=== PATIENT | female | born 1980 | race Caucasian/White ===

== ENCOUNTER 2017-03-21 13:50 | Emergency (ER) | payer MEDICAID, OTHER ==
[2017-03-21 13:50] VITALS: BMI 22.8
[2017-03-21 15:26] LABS: BASO # 0.02 K/mm3 (0.0-2.0); BASO % 0.3 % (0.0-3.0); EOS # 0.1 (0.0-0.7); GRAN # 4.27 (1.4-6.5); GRAN % 60.1 % (50.0-68.0); HEMATOCRIT 35.2 % (36.0-48.0); LYMPH # 2.3 (1.2-3.4); LYMPH % 31.6 % (22.0-35.0); MEAN CELL VOLUME 85.4 fl (80.0-105.0); MEAN CORPUSCULAR HEMOGLOBIN 28.2 pg (25.0-35.0); MEAN PLATELET VOLUME 11.1 fl (7.0-11.0); MONO # 0.5 (0.1-0.6); RED CELL DISTRIBUTION WIDTH 13.6 % (11.5-14.5); WHITE BLOOD COUNT 7.1 10^3/ul (4.5-11.0)
[2017-03-21 15:36] LABS: ALB/GLOB RATIO 1.3 (1.1-1.8); ALKALINE PHOSPHATASE 45 U/L (38-126); ALT/SGPT 25 U/L (7-56); AST/SGOT 27 U/L (14-36); BILIRUBIN,TOTAL 0.9 mg/dL (0.2-1.3); BLOOD UREA NITROGEN 9 mg/dL (7-21); CALCIUM 9.2 mg/dL (8.4-10.5); CARBON DIOXIDE 24 mmol/L (21-33); CHLORIDE 104 mmol/L (98-107); GFR AFRICAN-AMERICAN > 60; GLUCOSE,RANDOM 94 mg/dL (70-110); POTASSIUM 4.2 mmol/L (3.6-5.0); SODIUM 138 mmol/L (132-148); TOTAL PROTEIN 7.6 g/dL (5.8-8.3)
[2017-03-21 16:46] LABS: URINE BILIRUBIN NEGATIVE (NEGATIVE); URINE BLOOD NEGATIVE (NEGATIVE); URINE GLUCOSE (UA) NEGATIVE (NEGATIVE); URINE KETONE NEGATIVE (NEGATIVE); URINE LEUKOCYTE ESTERASE NEGATIVE Leu/uL (NEGATIVE); URINE PROTEIN NEGATIVE mg/dL (<30 mg/dL); URINE UROBILINOGEN 0.2 E.U./dL (<1 E.U./dL)
[2017-03-21 16:50] LABS: URINE APPEARANCE CLEAR (CLEAR); URINE COLOR YELLOW (YELLOW)
--- NOTE | 2017-03-21 17:09 | RAD ---
HISTORY: suicidal COMPARISON: None available. TECHNIQUE: Chest, one view. FINDINGS: LUNGS: No focal consolidation. Please note that chest x-ray has limited sensitivity for the detection of pulmonary masses. PLEURA: No significant pleural effusion identified. No definite pneumothorax . CARDIOVASCULAR: Heart size appears within normal limits. OSSEOUS STRUCTURES: No acute osseous abnormality identified. VISUALIZED UPPER ABDOMEN: Unremarkable. OTHER FINDINGS: None. IMPRESSION: No focal consolidation, significant pleural effusion, or definite pneumothorax identified.
--- NOTE | 2017-03-21 17:39 | ED PDOC ---
Arrival/HPI <Macey Huffman - Last Filed: 03/21/17 18:49> <Henry Rodgers - Last Filed: 03/21/17 22:49> - General Chief Complaint: Psychiatric Evaluation Time Seen by Provider: 03/21/17 14:22 - History of Present Illness Narrative History of Present Illness (Text): 03/21/17 18:50 Patient with known h/o depression was seen today by her therapist for routine visit and expressed suicidal ideations. She was sent to ED for evaluation. ( Macey Huffman) Past Medical History - Provider Review Nursing Documentation Reviewed: Yes - Past History Past History: No Previous - Tetanus Immunization Tetanus Immunization: Unknown - Cardiac Hx Cardiac Disorders: No Hx Hypertension: No - Pulmonary Hx Tuberculosis: No - Neurological HX Cerebrovascular Accident: No Hx Seizures: No - HEENT Hx HEENT Disorder: No - Renal Hx Renal Disorder: No - Endocrine/Metabolic Hx Endocrine Disorders: No - Hematological/Oncological Hx Cancer: No - Integumentary Hx Dermatological Disorder: No - Musculoskeletal/Rheumatological Hx Musculoskeletal Disorders: No - Gastrointestinal Hx Gastrointestinal Disorders: No - Genitourinary/Gynecological Hx Sexually Transmitted Diseases: No - Psychiatric Hx Psychophysiologic Disorder: Yes Hx Depression: Yes Hx Emotional Abuse: No Hx Physical Abuse: No Hx Substance Use: No - Past Surgical History Past Surgical History: No Previous - Surgical History Hx Section: Yes - Suicidal Assessment Feels Threatened In Home Enviroment: No <Macey Huffman - Last Filed: 03/21/17 18:49> Family/Social History Family/Social History: No Known Family HX Smoking Status: Never Smoked Hx Alcohol Use: No Hx Substance Use: No Hx Substance Use Treatment: No <Macey Huffman - Last Filed: 03/21/17 18:49> Allergies/Home Meds <Macey Huffman - Last Filed: 03/21/17 18:49> <Henry Rodgers - Last Filed: 03/21/17 22:49> Allergies/Adverse Reactions: Allergies No Known Allergies Allergy (Verified 03/21/17 14:15) Home Medications: Home Meds Medication Instructions Recorded Confirmed Unobtainable 03/21/17 03/21/17 Physical Exam Temperature: Afebrile Blood Pressure: Normal Pulse: Regular Respiratory Rate: Normal Appearance: Positive for: Well-Appearing, Non-Toxic, Comfortable Mental Status: Positive for: Alert and Oriented X 3 - Systems Exam Head: Present: Atraumatic, Normocephalic Conjunctiva: Present: Normal Mouth: Present: Moist Mucous Membranes Nose (External): Present: Atraumatic Respiratory/Chest: Present: Clear to Auscultation Cardiovascular: Present: Regular Rate and Rhythm Abdomen: No: Tenderness, Distention Upper Extremity: Present: Normal Inspection, Normal ROM. No: Edema Lower Extremity: Present: Normal Inspection. No: Edema Neurological: Present: GCS=15, Speech Normal, Motor Func Grossly Intact, Normal Sensory Function Psychiatric: Present: Alert, Oriented x 3, Depressed Mood, Suicidal Ideation <Macey Huffman - Last Filed: 03/21/17 18:49> Vital Signs Temp Pulse Resp BP Pulse Ox 03/21/17 19:20 98 F 62 16 100/60 100 03/21/17 14:16 98.5 F 70 16 116/65 97 Medical Decision Making - EKG Interpretation Interpreted by ED Physician: Yes - Transfer of Care Patient signed out to Dr:: Vishal Other: awaiting [facility] screener evaluation and disposition <Macey Huffman - Last Filed: 03/21/17 18:49> <Henry Rodgers - Last Filed: 03/21/17 22:49> ED Course and Treatment: 03/21/17 17:38 Patient is medically cleared for Psychiatric evaluation. 03/21/17 19:08 As per cemetery worker patient refused to sign in for admission and she will be evaluated by the [facility] screener (Macey Huffman) 03/21/17 20:21 Patient is to follow-up with [facility] Screening. Patient is medically cleared for psychiatric evaluation. 03/21/17 22:[address] Piper to f/u [facility], reevaluate and disposition. (Henry Rodgers) - Lab Interpretations Lab Results: 03/21/17 15:00 03/21/17 15:00 Lab Results 03/21/17 16:34: Urine Opiates Screen Negative, Urine Methadone Screen Negative, Ur Barbiturates Screen Negative, Ur Phencyclidine Scrn Negative, Ur Amphetamines Screen Negative, U Benzodiazepines Scrn Negative, U Oth Cocaine Metabols Negative, U Cannabinoids Screen Negative 03/21/17 16:34: Urine Color Yellow, Urine Appearance Clear, Urine pH 7.0, Ur Specific [place] 1.010, Urine Protein Negative, Urine Glucose (UA) Negative, Urine Ketones Negative, Urine Blood Negative, Urine Nitrate Negative, Urine Bilirubin Negative, Urine Urobilinogen 0.2, Ur Leukocyte Esterase Negative, Urine HCG, Qual Negative 03/21/17 15:00: Alcohol, Quantitative < 10 03/21/17 15:00: Salicylates < 1 L, Acetaminophen < 10.0 L 03/21/17 15:00: Sodium 138, Potassium 4.2, Chloride 104, Carbon Dioxide 24, Anion Gap 14, BUN 9, Creatinine 0.6 L, Est GFR ( Amer) > 60, Est GFR (Non -Af Amer) > 60, Random Glucose 94, Calcium 9.2, Total Bilirubin 0.9, AST 27, ALT 25, Alkaline Phosphatase 45, Total Protein 7.6, Albumin 4.2, Globulin 3.3, Albumin/Globulin Ratio 1.3 03/21/17 15:00: WBC 7.1, RBC 4.12, Hgb 11.6 L, Hct 35.2 L, MCV 85.4, MCH 28.2, MCHC 33.0, RDW 13.6, Plt Count 258, MPV 11.1 H, Gran % 60.1, Lymph % (Auto) 31.6 , [place] % (Auto) 7.0 H, Eos % (Auto) 1.0 L, Baso % (Auto) 0.3, Gran # 4.27, Lymph # 2.3, [place] # 0.5, Eos # 0.1, Baso # 0.02 - RAD Interpretation Narrative RAD Interpretations (Text): 03/21/17 19:09 Accession No. : [id number] Patient Name / ID : MARISOL MCINTYREHA / [id number] Exam Date : 03/21/2017 16:49:15 ( Approved ) Study Comment : Sex / Age : F / 36Y Creator : Barbara Carty MD Dictator : Barbara Carty MD Independent Trader : Cargo Supervisor : Barbara Carty MD Approver2 : Report Date : 03/21/2017 17:08:35 My Comment : HISTORY: suicidal COMPARISON: None available. TECHNIQUE: Chest, one view. FINDINGS: LUNGS: No focal consolidation. Please note that chest x-ray has limited sensitivity for the detection of pulmonary masses. PLEURA: No significant pleural effusion identified. No definite pneumothorax . CARDIOVASCULAR: Heart size appears within normal limits. OSSEOUS STRUCTURES: No acute osseous abnormality identified. VISUALIZED UPPER ABDOMEN: Unremarkable. OTHER FINDINGS: None. IMPRESSION: No focal consolidation, significant pleural effusion, or definite pneumothorax identified. (Macey Huffman) Radiology Orders: 03/21/17 14:23 CHEST ONE VIEW [RAD] Stat - EKG Interpretation EKG Interpretation (Text): 03/21/17 19:10 NSR at 63 bpm, no acute changes (Macey Huffman) Disposition/Present on Arrival - Present on Arrival Any Indicators Present on Arrival: No History of DVT/PE: No History of Uncontrolled Diabetes: No Urinary Catheter: No History of Decub. Ulcer: No History Surgical Site Infection Following: None - Disposition Have Diagnosis and Disposition been Completed?: Yes Disposition Time: 19:12 <Macey Huffman - Last Filed: 03/21/17 18:49> - Present on Arrival Any Indicators Present on Arrival: No - Disposition Have Diagnosis and Disposition been Completed?: No <Henry Rodgers - Last Filed: 03/21/17 22:49> - Disposition Diagnosis: Suicidal ideations Patient Problems: Current Active Problems Problem Status Onset Suicidal ideations Acute Condition: STABLE Referrals: Liseth Norton MD [Primary Care Provider] - Follow up with primary Forms: [employer] (Romanian)
[2017-03-21 23:07] VITALS: TEMP 98.1
--- NOTE | 2017-03-21 23:13 | ED PDOC ---
Physical Exam Vital Signs Temp Pulse Resp BP Pulse Ox 03/22/17 01:00 72 16 115/63 99 03/21/17 23:06 98.1 F 69 18 115/61 100 03/21/17 19:20 98 F 62 16 100/60 100 03/21/17 14:16 98.5 F 70 16 116/65 97 Medical Decision Making ED Course and Treatment: 03/21/17 23:00 Patient signed out to me by Dr. Rodgers. Pending Psychiatric evaluation. 03/22/17 03:45 [facility] screener evaluated patient, who deems her unqualified for involuntary admission. Patient reevaluated by PES worker who discussed case psychiatrist. Patient is no longer suicidal, clearing her for discharge. - Lab Interpretations Lab Results: 03/21/17 15:00 03/21/17 15:00 Lab Results 03/21/17 16:34: Urine Opiates Screen Negative, Urine Methadone Screen Negative, Ur Barbiturates Screen Negative, Ur Phencyclidine Scrn Negative, Ur Amphetamines Screen Negative, U Benzodiazepines Scrn Negative, U Oth Cocaine Metabols Negative, U Cannabinoids Screen Negative 03/21/17 16:34: Urine Color Yellow, Urine Appearance Clear, Urine pH 7.0, Ur Specific [place] 1.010, Urine Protein Negative, Urine Glucose (UA) Negative, Urine Ketones Negative, Urine Blood Negative, Urine Nitrate Negative, Urine Bilirubin Negative, Urine Urobilinogen 0.2, Ur Leukocyte Esterase Negative, Urine HCG, Qual Negative 03/21/17 15:00: Alcohol, Quantitative < 10 03/21/17 15:00: Salicylates < 1 L, Acetaminophen < 10.0 L 03/21/17 15:00: Sodium 138, Potassium 4.2, Chloride 104, Carbon Dioxide 24, Anion Gap 14, BUN 9, Creatinine 0.6 L, Est GFR ( Amer) > 60, Est GFR (Non -Af Amer) > 60, Random Glucose 94, Calcium 9.2, Total Bilirubin 0.9, AST 27, ALT 25, Alkaline Phosphatase 45, Total Protein 7.6, Albumin 4.2, Globulin 3.3, Albumin/Globulin Ratio 1.3 03/21/17 15:00: WBC 7.1, RBC 4.12, Hgb 11.6 L, Hct 35.2 L, MCV 85.4, MCH 28.2, MCHC 33.0, RDW 13.6, Plt Count 258, MPV 11.1 H, Gran % 60.1, Lymph % (Auto) 31.6 , [place] % (Auto) 7.0 H, Eos % (Auto) 1.0 L, Baso % (Auto) 0.3, Gran # 4.27, Lymph # 2.3, [place] # 0.5, Eos # 0.1, Baso # 0.02 - RAD Interpretation Radiology Orders: 03/21/17 14:23 CHEST ONE VIEW [RAD] Stat - Scribe Statement The provider has reviewed the documentation as recorded by the Cliftonibmichelel Albarado Provider Scribe Attestation: All medical record entries made by the Scribe were at my direction and personally dictated by me. I have reviewed the chart and agree that the record accurately reflects my personal performance of the history, physical exam, medical decision making, and the department course for this patient. I have also personally directed, reviewed, and agree with the discharge instructions and disposition. Disposition/Present on Arrival - Present on Arrival Any Indicators Present on Arrival: No History of DVT/PE: No History of Uncontrolled Diabetes: No Urinary Catheter: No History of Decub. Ulcer: No History Surgical Site Infection Following: None - Disposition Have Diagnosis and Disposition been Completed?: Yes Diagnosis: Depression Disposition: HOME/ ROUTINE Disposition Time: 04:00 Condition: STABLE Additional Instructions: Please follow up with resources provided by our psychiatry service. Return to the ER for any worsening symptoms or for any other concerns. Referrals: Liseth Norton MD [Primary Care Provider] - Follow up with primary Forms: [employer] (Montserratian)
[2017-03-22 01:32] VITALS: RESP 16
[2017-03-22 04:01] VITALS: BP 113/64; PULSE 71; O2SAT 99
--- NOTE | 2017-03-22 15:41 | CARD ---
APPROVED REPORT EKG Measurement Heart [id number] <Conclusion> Sinus rhythm with short MN RSR' Pattern in V1.
== END 2017-03-22 04:01 | disposition home or self-care (01) ==
LOC: ED 13:50
DX: R45.851 Suicidal ideations (principal); F32.9 Major depressive disorder, single episode, unspecified

== ENCOUNTER 2017-08-14 13:57 | Emergency (ER) | payer MEDICAID ==
--- NOTE | 2017-08-14 14:34 | ED PDOC ---
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 Past Medical History - Provider Review Nursing Documentation Reviewed: Yes - Past History Past History: No Previous - Tetanus Immunization Tetanus Immunization: Unknown - Cardiac Hx Cardiac Disorders: No Hx Hypertension: No - Pulmonary Hx Tuberculosis: No - Neurological HX Cerebrovascular Accident: No Hx Seizures: No - HEENT Hx HEENT Disorder: No - Renal Hx Renal Disorder: No - Endocrine/Metabolic Hx Endocrine Disorders: No - Hematological/Oncological Hx Cancer: No - Integumentary Hx Dermatological Disorder: No - Musculoskeletal/Rheumatological Hx Musculoskeletal Disorders: No - Gastrointestinal Hx Gastrointestinal Disorders: No - Genitourinary/Gynecological Hx Sexually Transmitted Diseases: No - Psychiatric Hx Psychophysiologic Disorder: Yes Hx Depression: Yes Hx Emotional Abuse: No Hx Physical Abuse: No Hx Substance Use: No - Past Surgical History Past Surgical History: No Previous - Surgical History Hx Section: Yes - Suicidal Assessment Feels Threatened In Home Enviroment: No Family/Social History - Physician Review Nursing Documentation Reviewed: Yes Family/Social History: Unknown Family HX Smoking Status: Never Smoked Hx Alcohol Use: No Hx Substance Use: No Hx Substance Use Treatment: No Allergies/Home Meds Allergies/Adverse Reactions: Allergies No Known Allergies Allergy (Verified 08/14/17 14:53) Home Medications: Home Meds Medication Instructions Recorded Confirmed Zolpidem [Ambien] 5 mg PO HS 08/14/17 08/14/17 Review of Systems - Review of Systems Constitutional: Normal Eyes: Normal ENT: Normal Respiratory: Normal Cardiovascular: Normal Gastrointestinal: Abdominal Pain (Left flank). absent: Constipation, Diarrhea, Nausea, Vomiting, Hematochezia, Hematemesis Genitourinary Female: Normal Musculoskeletal: Normal Skin: Normal Neurological: Normal Endocrine: Normal Hemo/Lymphatic: Normal Psychiatric: Normal Physical Exam Vital Signs Reviewed: Yes Vital Signs Temp Pulse Resp BP Pulse Ox 08/14/17 18:16 75 18 140/80 100 08/14/17 17:31 79 18 160/75 H 100 08/14/17 16:40 70 18 135/70 99 08/14/17 14:35 98.2 F 77 17 137/60 98 Temperature: Afebrile Blood Pressure: Normal Pulse: Regular Respiratory Rate: Normal Appearance: Positive for: Well-Appearing, Non-Toxic, Comfortable Pain Distress: None Mental Status: Positive for: Alert and Oriented X 3 - Systems Exam Head: Present: Atraumatic, Normocephalic Pupils: Present: PERRL Extroacular Muscles: Present: EOMI Conjunctiva: Present: Normal Mouth: Present: Moist Mucous Membranes Neck: Present: Normal Range of Motion Respiratory/Chest: Present: Clear to Auscultation, Good Air Exchange. No: Respiratory Distress, Accessory Muscle Use Cardiovascular: Present: Regular Rate and Rhythm, Normal S1, S2. No: Murmurs Abdomen: Present: Tenderness (LEft flank tenderness), Normal Bowel Sounds, Other (soft). No: Distention, Peritoneal Signs, Rebound, Guarding, McBurney's Point Tender, Rovsing's Sign Present Back: Present: Normal Inspection Upper Extremity: Present: Normal Inspection. No: Cyanosis, Edema Lower Extremity: Present: Normal Inspection. No: Edema Neurological: Present: GCS=15, CN II-XII Intact, Speech Normal Skin: Present: Warm, Dry, Normal Color. No: Rashes Psychiatric: Present: Alert, Oriented x 3, Normal Insight, Normal Concentration Medical Decision Making ED Course and Treatment: 08/14/17 19:16 Pt's pain was controlled in ED with analgesic and hydration. Her lab was unremarkable. Abdominal pelvis CT IMPRESSION: Unilateral, left obstructive uropathy. One, possibly 2 small distal left ureteral calculi. Left ureter is distended, and the left kidney is edematous without upper tract calculi. Case was DW Dr. Warner. He requested pt's face sheet. Recommends pt be DC home with his cell phone and he will see pt in his office. Result and plan was DW the pt. She was referred to Dr. Warner. Rx of Flomax and PErcocet was given. - Lab Interpretations Lab Results: 08/14/17 15:20 08/14/17 15:20 Lab Results 08/14/17 15:20: Sodium 139, Potassium 3.5 L, Chloride 103, Carbon Dioxide 25, Anion Gap 15, BUN 10, Creatinine 0.7, Est GFR ( Amer) > 60, Est GFR (Non- Af Amer) > 60, Random Glucose 94, Calcium 10.2, Total Bilirubin 0.8, AST 32, ALT 28, Alkaline Phosphatase 68, Total Protein 8.1, Albumin 4.3, Globulin 3.8, Albumin/Globulin Ratio 1.1, Lipase 48 08/14/17 15:20: PT 10.6, INR 0.93, APTT 26.8 08/14/17 15:20: WBC 8.7 D, RBC 4.50, Hgb 12.8, Hct 39.2, MCV 87.1, MCH 28.4, MCHC 32.7, RDW 13.5, Plt Count 260, MPV 12.0 H, Gran % 68.6 H, Lymph % (Auto) 23.1, [place] % (Auto) 6.4 H, Eos % (Auto) 1.7, Baso % (Auto) 0.2, Gran # 5.95, Lymph # (Auto) 2.0, [place] # (Auto) 0.6, Eos # (Auto) 0.2, Baso # (Auto) 0.02 08/14/17 15:00: Urine Color Yellow, Urine Appearance Sl cloudy, Urine pH 7.0, Ur Specific [place] 1.025, Urine Protein Negative, Urine Glucose (UA) Negative, Urine Ketones Negative, Urine Blood Large H, Urine Nitrate Negative, Urine Bilirubin Negative, Urine Urobilinogen 0.2, Ur Leukocyte Esterase Negative, Urine RBC 5 - 10, Urine WBC 2 - 5, Ur Epithelial Cells 6 - 8, Amorphous Sediment Few, Urine Bacteria Mod - RAD Interpretation Radiology Orders: 08/14/17 14:36 ABD & PELVIS W/O PO OR IV CONT [CT] Stat - Medication Orders Current Medication Orders: Discontinued Medications Famotidine (Pepcid) 20 mg IVP STAT STA Stop: 08/14/17 15:07 Last Admin: 08/14/17 15:21 Dose: 20 mg IVP Administration Document 08/14/17 15:21 SF (Rec: 08/14/17 15:21 SF [id number]) Charges for Administration # of IVP Administrations 1 Sodium Chloride (Sodium Chloride 0.9%) 1,000 mls @ 999 mls/hr IV .Q1H1M STA Stop: 08/14/17 16:43 Last Admin: 08/14/17 15:50 Dose: 999 mls/hr eMAR Start Stop Document 08/14/17 15:50 SF (Rec: 08/14/17 16:46 SF [id number]) Intravenous Solution Start Date 08/14/17 Start Time 15:50 End Date 08/14/17 End time 16:51 Total Infusion Time 61 Ketorolac Tromethamine (Toradol) 30 mg IVP STAT STA Stop: 08/14/17 15:07 Last Admin: 08/14/17 15:22 Dose: 30 mg [facility] Pain Assessment Document 08/14/17 15:22 SF (Rec: 08/14/17 15:22 SF [id number]) Pain Reassessment Is this a pain reassessment? Yes Sleep Is patient sleeping during reassessment? No Presence of Pain Presence of Pain Yes Pain Scale Used Pain Scale Used Numeric IVP Administration Document 08/14/17 15:22 SF (Rec: 08/14/17 15:22 SF [id number]) Charges for Administration # of IVP Administrations 1 Re-Assess: [facility] Pain Assessment Document 08/14/17 16:22 PARENT AIDE (Rec: 08/14/17 17:27 [facility]-[id number]) Pain Reassessment Is this a pain reassessment? Yes Presence of Pain Presence of Pain No Oxycodone/Acetaminophen (Percocet 5/325 Mg Tab) 1 tab PO STAT STA Stop: 08/14/17 17:58 Last Admin: 08/14/17 18:19 Dose: 1 tab MAR Pain Assessment Document 08/14/17 18:19 SF (Rec: 08/14/17 18:19 SF [id number]) Pain Reassessment Is this a pain reassessment? Yes Sleep Is patient sleeping during reassessment? No Presence of Pain Presence of Pain Yes Potassium Chloride (K-Dur 20 Meq Er Tab) 20 meq PO STAT STA Stop: 08/14/17 16:15 Last Admin: 08/14/17 16:47 Dose: 20 meq Tamsulosin HCl (Flomax) 0.4 mg PO STAT STA Stop: 08/14/17 16:57 Last Admin: 08/14/17 17:31 Dose: 0.4 mg Disposition/Present on Arrival - Present on Arrival Any Indicators Present on Arrival: No History of DVT/PE: No History of Uncontrolled Diabetes: No Urinary Catheter: No History Surgical Site Infection Following: None - Disposition Have Diagnosis and Disposition been Completed?: Yes Diagnosis: Ureterolithiasis Disposition: HOME/ ROUTINE Disposition Time: 17:00 Patient Plan: Discharge Condition: STABLE Discharge Instructions (ExitCare): Urinary Obstruction Additional Instructions: Follow up with Urologist, Dr. Warner [phone] Drink plenty of fluid and eat less sodium Result to ED for any new or worsening symptoms Prescriptions: oxyCODONE/Acetaminophen [Percocet 5/325 mg Tab] 1 ea PO Q6 #9 tab Tamsulosin [Flomax] 0.4 mg PO DAILY #4 cap Referrals: Brian Warner MD [Staff Provider] - Follow up with primary Forms: [employer] (Uzbek)
[2017-08-14 14:41] VITALS: TEMP 98.2; BMI 24.2
[2017-08-14 15:31] LABS: URINE BILIRUBIN NEGATIVE (NEGATIVE); URINE BLOOD LARGE (NEGATIVE); URINE GLUCOSE (UA) NEGATIVE (NEGATIVE); URINE LEUKOCYTE ESTERASE NEGATIVE Leu/uL (NEGATIVE); URINE PROTEIN NEGATIVE mg/dL (<30 mg/dL); URINE UROBILINOGEN 0.2 E.U./dL (<1 E.U./dL)
[2017-08-14 15:41] LABS: URINE APPEARANCE SL CLOUDY (CLEAR); URINE COLOR YELLOW (YELLOW)
[2017-08-14] MEDS ORDERED: Sodium Chloride 0.9% 1,000 ML IV STA (15:43)
[2017-08-14 15:53] LABS: URINE AMORPHOUS SEDIMENT FEW; URINE BACTERIA MOD (NEG)
[2017-08-14 16:06] LABS: BASO # 0.02 K/mm3 (0.0-2.0); BASO % 0.2 % (0.0-3.0); EOS # 0.2 (0.0-0.7); EOS % 1.7 % (1.5-5.0); GRAN # 5.95 (1.4-6.5); GRAN % 68.6 % (50.0-68.0); HEMOGLOBIN 12.8 g/dL (12.0-16.0); LYMPH % 23.1 % (22.0-35.0); MEAN CELL VOLUME 87.1 fl (80.0-105.0); MEAN CORPUSCULAR HEMOGLOBIN 28.4 pg (25.0-35.0); MEAN CORPUSCULAR HGB CONC 32.7 g/dl (31.0-37.0); MONO # 0.6 (0.1-0.6); MONO % 6.4 % (1.0-6.0); RBC 4.5 10^6/uL (3.5-6.1); RED CELL DISTRIBUTION WIDTH 13.5 % (11.5-14.5); WHITE BLOOD COUNT 8.7 10^3/ul (4.5-11.0)
[2017-08-14 16:11] LABS: INR 0.93 (0.93-1.08); PARTIAL THROMBOPLASTIN TIME 26.8 Seconds (25.1-36.5); PROTHROMBIN TIME 10.6 SECONDS (9.4-12.5)
[2017-08-14 16:13] LABS: ALB/GLOB RATIO 1.1 (1.1-1.8); ALBUMIN 4.3 g/dL (3.0-4.8); ALT/SGPT 28 U/L (7-56); AST/SGOT 32 U/L (14-36); BLOOD UREA NITROGEN 10 mg/dL (7-21); CALCIUM 10.2 mg/dL (8.4-10.5); GFR AFRICAN-AMERICAN > 60; GFR NON-AFRICAN AMERICAN > 60; LIPASE 48 U/L (23-300)
[2017-08-14] MEDS ORDERED: Potassium Chloride 20 mEq ER Tab PO STA (16:14)
--- NOTE | 2017-08-14 16:28 | CT ---
PROCEDURE: CT Abdomen and Pelvis without intravenous contrast HISTORY: Left flank pain. By history, negative test (concurrent with this examination). COMPARISON: None. TECHNIQUE: Unenhanced study. Neither oral nor intravenous contrast administered. Radiation dose: Total exam DLP = 306.81 mGy-cm. This CT exam was performed using one or more of the following dose reduction techniques: Automated exposure control, adjustment of the mA and/or kV according to patient size, and/or use of iterative reconstruction technique. FINDINGS: LOWER THORAX: Unremarkable. LIVER: Unremarkable. No gross lesion or ductal dilatation. GALLBLADDER AND BILE DUCTS: Unremarkable. PANCREAS: Unremarkable. No gross lesion or ductal dilatation. SPLEEN: Unremarkable. ADRENALS: Unremarkable. No mass. KIDNEYS AND URETERS: 2 mm calculus within 1 cm of the left ureterovesical junction. Proximal left hydroureter and hydronephrosis identified. The left kidney is moderately edematous with perinephric stranding without urinoma. No upper tract calculi identified. VASCULATURE: Unremarkable. No aortic aneurysm. BOWEL: Unremarkable. No obstruction. No gross mural thickening. APPENDIX: Unremarkable. Normal appendix. PERITONEUM: Unremarkable. No free fluid. No free air. LYMPH NODES: Unremarkable. No enlarged lymph nodes. BLADDER: Unremarkable. REPRODUCTIVE: Unremarkable. BONES: No acute fracture. OTHER FINDINGS: None. IMPRESSION: Unilateral, left obstructive uropathy. One, possibly 2 small distal left ureteral calculi. Left ureter is distended, and the left kidney is edematous without upper tract calculi.
[2017-08-14 16:41] VITALS: RESP 18
[2017-08-14 17:31] VITALS: O2SAT 100
[2017-08-14] MEDS ORDERED: Oxycodone/Acetaminophen 5/325 mg Tab PO STA (17:57)
[2017-08-14 18:17] VITALS: BP 140/80; PULSE 75
== END 2017-08-14 18:23 | disposition home or self-care (01) ==
LOC: ED 13:57
DX: N20.1 Calculus of ureter (principal)
CPT/HCPCS: 74176; 80053; 81001; 83690; 85025; 85610; 85730; 96361; 96374; 96375; 99285; J1885; J7040

== ENCOUNTER 2017-08-15 11:29 | Observation (INO) | payer MEDICAID ==
[2017-08-15 12:43] VITALS: BMI 24.2
[2017-08-15] MEDS ORDERED: Morphine 4 mg/ml ISec IVP STA ×2 (13:04→15:53)
[2017-08-15 13:50] LABS: BASO # 0.02 K/mm3 (0.0-2.0); BASO % 0.2 % (0.0-3.0); EOS % 0.4 % (1.5-5.0); GRAN # 8.71 (1.4-6.5); GRAN % 78.7 % (50.0-68.0); LYMPH # 1.6 (1.2-3.4); LYMPH % 14.7 % (22.0-35.0); MEAN CORPUSCULAR HGB CONC 32.6 g/dl (31.0-37.0); MEAN PLATELET VOLUME 11.6 fl (7.0-11.0); MONO # 0.7 (0.1-0.6); RBC 4.28 10^6/uL (3.5-6.1); RED CELL DISTRIBUTION WIDTH 13.5 % (11.5-14.5); WHITE BLOOD COUNT 11.1 10^3/ul (4.5-11.0)
--- NOTE | 2017-08-15 14:39 | ED PDOC ---
Arrival/HPI - General Chief Complaint: Back Pain Time Seen by Provider: 08/15/17 12:51 Historian: Patient - History of Present Illness Narrative History of Present Illness (Text): 08/15/17 14:35 Kim Bui is a 37 year old female, with no significant past medical history, who presents to the emergency department complaining of left flank pain for 2 days. Patient was seen yesterday and diagnoses with kidney stones. Patient called his urologist this morning, who wants to perform the procedure this evening. Patient denies any fever, chills, chest pain, shortness of breath, nausea, vomiting, diarrhea, back pain, neck pain, headache, dizziness, or any other complaints. 08/15/17 14:43 Time/Duration: < week (2 days) Symptom Onset: Gradual Symptom Course: Unchanged Activities at Onset: Light Context: Home Past Medical History - Provider Review Nursing Documentation Reviewed: Yes - Past History Past History: No Previous - Infectious Disease Hx of Infectious Diseases: None - Tetanus Immunization Tetanus Immunization: Unknown - Cardiac Hx Cardiac Disorders: No Hx Hypertension: No - Pulmonary Hx Tuberculosis: No - Neurological HX Cerebrovascular Accident: No Hx Seizures: No - HEENT Hx HEENT Disorder: No - Renal Hx Kidney Stones: Yes - Endocrine/Metabolic Hx Endocrine Disorders: No - Hematological/Oncological Hx Cancer: No - Integumentary Hx Dermatological Disorder: No - Musculoskeletal/Rheumatological Hx Musculoskeletal Disorders: No - Gastrointestinal Hx Gastrointestinal Disorders: No - Genitourinary/Gynecological Hx Sexually Transmitted Diseases: No - Psychiatric Hx Psychophysiologic Disorder: Yes Hx Depression: Yes Hx Emotional Abuse: No Hx Physical Abuse: No Hx Substance Use: No - Past Surgical History Past Surgical History: No Previous - Surgical History Hx Section: Yes - Anesthesia Hx Anesthesia: Yes Hx Anesthesia Reactions: No Hx Malignant Hyperthermia: No - Suicidal Assessment Feels Threatened In Home Enviroment: No Family/Social History - Physician Review Nursing Documentation Reviewed: Yes Family/Social History: Unknown Family HX Smoking Status: Never Smoked Hx Alcohol Use: No Hx Substance Use: No Hx Substance Use Treatment: No Allergies/Home Meds Allergies/Adverse Reactions: Allergies No Known Allergies Allergy (Verified 08/15/17 19:27) Home Medications: Home Meds Medication Instructions Recorded Confirmed Zolpidem [Ambien] 5 mg PO HS 08/14/17 08/15/17 Review of Systems - Physician Review All systems were reviewed & negative as marked: Yes - Review of Systems Constitutional: Normal Eyes: Normal ENT: Normal Respiratory: Normal. absent: SOB, Cough Cardiovascular: Normal. absent: Chest Pain, Palpitations Gastrointestinal: Normal. absent: Diarrhea, Nausea, Vomiting Genitourinary Female: Normal Musculoskeletal: Back Pain (Left flank pain). absent: Neck Pain Skin: Normal. absent: Rash Neurological: Normal. absent: Headache, Dizziness Endocrine: Normal Hemo/Lymphatic: Normal Psychiatric: Normal Physical Exam - Systems Exam Head: Present: Atraumatic, Normocephalic Pupils: Present: PERRL Extroacular Muscles: Present: EOMI Conjunctiva: Present: Normal Mouth: Present: Moist Mucous Membranes Neck: Present: Normal Range of Motion. No: Meningeal Signs, MIDLINE TENDERNESS , JVD Respiratory/Chest: Present: Clear to Auscultation, Good Air Exchange. No: Respiratory Distress, Accessory Muscle Use Cardiovascular: Present: Regular Rate and Rhythm, Normal S1, S2. No: Murmurs Abdomen: Present: Distention (moderate distention). No: Tenderness, Peritoneal Signs Back: Present: CVA Tenderness (Left CVA tenderness). No: Midline Tenderness, Paraspinal Tenderness Upper Extremity: Present: Normal Inspection. No: Cyanosis, Edema Lower Extremity: Present: Normal Inspection. No: Edema Neurological: Present: GCS=15, CN II-XII Intact, Speech Normal Skin: Present: Warm, Dry, Normal Color. No: Rashes Psychiatric: Present: Alert, Oriented x 3, Normal Insight, Normal Concentration Medical Decision Making ED Course and Treatment: 08/15/17 14:41 Impression: 37 year old female presents to the emergency department complaining of left flank pain. Plan: -- Lipase -- Labs -- Urine culture -- Urinalysis -- Toradol -- Morphine -- Reassess and disposition Progress Notes: - Lab Interpretations Lab Results: 08/15/17 13:30 08/15/17 13:30 Lab Results 08/15/17 13:30: Sodium 139, Potassium 3.9, Chloride 104, Carbon Dioxide 21, Anion Gap 18, BUN 10, Creatinine 0.8, Est GFR ( Amer) > 60, Est GFR (Non- Af Amer) > 60, Random Glucose 94, Calcium 9.5, Total Bilirubin 1.4 H, AST 41 H D , ALT 27, Alkaline Phosphatase 55, Total Protein 7.7, Albumin 4.1, Globulin 3.6 , Albumin/Globulin Ratio 1.1, Lipase 37 08/15/17 13:30: WBC 11.1 H D, RBC 4.28, Hgb 12.0, Hct 36.8, MCV 86.0, MCH 28.0, MCHC 32.6, RDW 13.5, Plt Count 241, MPV 11.6 H, Gran % 78.7 H, Lymph % (Auto) 14.7 L, Luna % (Auto) 6.0, Eos % (Auto) 0.4 L, Baso % (Auto) 0.2, Gran # 8.71 H , Lymph # (Auto) 1.6, Luna # (Auto) 0.7 H, Eos # (Auto) 0.0, Baso # (Auto) 0.02 - Medication Orders Current Medication Orders: Discontinued Medications Sodium Chloride (Sodium Chloride 0.9%) 1,000 mls @ 100 mls/hr IV .Q10H MARTHA Last Admin: 08/16/17 03:56 Dose: Ceftriaxone Sodium (Rocephin 1 Gram Ivpb) 1 gm in 100 mls @ 200 mls/hr IVPB STAT STA Stop: 08/15/17 16:47 Last Admin: 08/15/17 16:30 Dose: 200 mls/hr eMAR Start Stop Document 08/15/17 16:30 (Rec: 08/15/17 17:10 [id number] Intravenous Solution Start Date 08/15/17 Start Time 16:30 Lactated Ringer's (Lactated Ringer's) 1,000 mls @ 75 mls/hr IV .[id number] MARTHA Stop: 08/15/17 23:16 Ketorolac Tromethamine (Toradol) 30 mg IVP STAT STA Stop: 08/15/17 13:05 Last Admin: 08/15/17 13:23 Dose: 30 mg MAR Pain Assessment Document 08/15/17 13:23 (Rec: 08/15/17 13:23 [id number] Pain Reassessment Is this a pain reassessment? Yes Sleep Is patient sleeping during reassessment? No Presence of Pain Presence of Pain Yes Pain Scale Used Pain Scale Used Numeric Location Upper or Lower Lower Pain Location Body Site Back Description Description Constant Pain Behavior Crying IVP Administration Document 08/15/17 13:23 (Rec: 08/15/17 13:23 [id number]) Charges for Administration # of IVP Administrations 1 Morphine Sulfate (Morphine) 4 mg IVP STAT STA Stop: 08/15/17 13:05 Last Admin: 08/15/17 13:21 Dose: 4 mg MAR Pain Assessment Document 08/15/17 13:21 (Rec: 08/15/17 13:23 [id number]) Pain Reassessment Is this a pain reassessment? Yes Sleep Is patient sleeping during reassessment? No Presence of Pain Presence of Pain Yes Pain Scale Used Pain Scale Used Numeric Location Upper or Lower Lower Pain Location Body Site Back Description Description Constant Intensity of Pain at present 10 Pain Behavior Moaning Crying Aggravating Factors Contant IVP Administration Document 08/15/17 13:21 (Rec: 08/15/17 13:23 [id number]) Charges for Administration # of IVP Administrations 1 Morphine Sulfate (Morphine) 4 mg IVP STAT STA Stop: 08/15/17 15:54 Last Admin: 08/15/17 16:20 Dose: 4 mg MAR Pain Assessment Document 08/15/17 16:20 RG (Rec: 08/15/17 16:21 [id number]) Pain Reassessment Is this a pain reassessment? Yes Sleep Is patient sleeping during reassessment? No Presence of Pain Presence of Pain Yes Pain Scale Used Pain Scale Used Numeric Location Pain Location Body Site Back Description Description Constant Intensity of Pain at present 8 Pain Behavior Guarding Pain not relieved and LIP/MD was Yes notified IVP Administration Document 08/15/17 16:20 (Rec: 08/15/17 16:21 [id number]) Charges for Administration # of IVP Administrations 1 Morphine Sulfate (Morphine) 2 mg IVP Q4H PRN PRN Reason: Pain, moderate (4-7) Last Admin: 08/16/17 03:56 Dose: 2 mg MAR Pain Assessment Document 08/16/17 03:56 MB (Rec: 08/16/17 03:57 MB [id number]) Pain Reassessment Is this a pain reassessment? No Sleep Is patient sleeping during reassessment? No Presence of Pain Presence of Pain Yes Pain Scale Used Pain Scale Used Numeric Location Left, Right or Bilateral Left Upper or Lower Upper Pain Location Body Site Abdomen Back Description Description Intermittent Intensity of Pain at present 7 IVP Administration Document 08/16/17 03:56 MB (Rec: 08/16/17 03:57 MB [facility] [id number] Charges for Administration # of IVP Administrations 1 Re-Assess: JUNAID Pain Assessment Document 08/16/17 04:56 MB (Rec: 08/16/17 05:19 MB [facility] [id number] Pain Reassessment Is this a pain reassessment? Yes Sleep Is patient sleeping during reassessment? Yes Morphine Sulfate (Morphine) 2 mg IVP Q15M PRN PRN Reason: Pain, moderate (4-7) Stop: 08/15/17 23:59 Ondansetron HCl (Zofran Inj) 2 mg IVP Q4H PRN PRN Reason: Nausea/Vomiting Ondansetron HCl (Zofran Inj) 4 mg IVP Q4H PRN PRN Reason: Nausea/Vomiting Pantoprazole Sodium (Protonix Inj) 40 mg IVP DAILY MARTHA Pantoprazole Sodium (Protonix Ec Tab) 40 mg PO ACB MARTHA Phenazopyridine HCl (Pyridium) 200 mg PO STAT STA Stop: 08/16/17 07:47 Last Admin: 08/16/17 09:44 Dose: 200 mg Pneumococcal Polyvalent Vaccine (Pneumovax 23 Vaccine) 0.5 ml IM .ONCE ONE Stop: 08/15/17 21:33 Last Admin: 08/16/17 05:19 Dose: Immunization Registry Document 08/16/17 05:19 MB (Rec: 08/16/17 05:19 MB [facility] [id number]) Immunization Registry Consent Date 08/14/17 Tamsulosin HCl (Flomax) 0.4 mg PO STAT STA Stop: 08/15/17 16:16 Tamsulosin HCl (Flomax) 0.4 mg PO DAILY [facility] Last Admin: 08/16/17 09:45 Dose: 0.4 mg - Scribe Statement The provider has reviewed the documentation as recorded by the Cliftonibmichelle Otoole All medical record entries made by the Cliftonibmichelle were at my direction and personally dictated by me. I have reviewed the chart and agree that the record accurately reflects my personal performance of the history, physical exam, medical decision making, and the department course for this patient. I have also personally directed, reviewed, and agree with the discharge instructions and disposition. Disposition/Present on Arrival - Present on Arrival Any Indicators Present on Arrival: No History of DVT/PE: No History of Uncontrolled Diabetes: No Urinary Catheter: No History of Decub. Ulcer: No History Surgical Site Infection Following: None - Disposition Have Diagnosis and Disposition been Completed?: Yes Diagnosis: Kidney stone Disposition: HOSPITALIZED Disposition Time: 14:00 Condition: STABLE
[2017-08-15 14:45] LABS: ALB/GLOB RATIO 1.1 (1.1-1.8); ALBUMIN 4.1 g/dL (3.0-4.8); ALT/SGPT 27 U/L (7-56); AST/SGOT 41 U/L (14-36); BLOOD UREA NITROGEN 10 mg/dL (7-21); CALCIUM 9.5 mg/dL (8.4-10.5); GFR AFRICAN-AMERICAN > 60; GFR NON-AFRICAN AMERICAN > 60; LIPASE 37 U/L (23-300)
[2017-08-15] MEDS ORDERED: cefTRIAXone (Rocephin) 1 gm Inj IVPB STA (16:15)
[2017-08-15] MEDS ORDERED: cefTRIAXone 1 GM/100 ML BAG IVPB STA (16:18)
--- NOTE | 2017-08-15 17:04 | CP.PCM.HP ---
<Aleksey TuckerGilberto - Last Filed: 08/15/17 18:10> History of Present Illness - History of Present Illness History of Present Illness: Patient is a 37 year old female with no significant past medical history presenting with 2 days of left abdominal and flank pain. Patient states the pain started yesterday early in the day while cooking. Patient came to [facility] [place] for evaluation but decided to go home since pain subsided for the time being. Patient then returned today with the same pain. CT abdomen and pelvis performed yesterday revealed 2 mm calculus within 1 cm of the left ureterovesical junction. Proximal left hydroureter and hydronephrosis identified. The left kidney is moderately edematous with perinephric stranding without urinoma. No upper tract calculi identified. Patient described the pain as sharp, located in the left flank radiating to the left abdomen, rating it a 10/10, exacerbated with laying down and relieved with standing. Patient admits to taking a percocet this morning with no relief. Patient also endorses loss of appetitie as well as one episode of vomiting due to nausea associated with pain. Denies fevers, chills, dysuria, justin hematuria, chest pain, shortness of breath, headache. Admits to decreased urine output. PMD: Dr. Norton Urologist: Dr. Warner Family history: Nephrolithiasis in both brothers Surgical history: 2 c-sections Allergies: denies Social history: denies tobacco, alcohol, illicit drug use Present on Admission - Present on Admission Any Indicators Present on Admission: No Review of Systems - Constitutional Constitutional: Anorexia. absent: Chills, Fever, Headache - EENT Eyes: absent: Blurred Vision, Change in Vision Ears: absent: Ear Discharge, Ear Pain Nose/Mouth/Throat: absent: Nasal Congestion, Nasal Discharge - Cardiovascular Cardiovascular: absent: Chest Pain, Chest Pain at Rest, Dyspnea, Dyspnea on Exertion - Respiratory Respiratory: absent: Cough, Dyspnea - Gastrointestinal Gastrointestinal: Abdominal Pain (left sided), Nausea, Vomiting. absent: Diarrhea - Genitourinary Genitourinary: absent: Dysuria, Hematuria, Urinary Incontinence, Urinary Frequency - Musculoskeletal Musculoskeletal: Back Pain - Psychiatric Psychiatric: absent: Anxiety, Irritability - Endocrine Endocrine: absent: Change in Libido, Cold Intolorance - Hematologic/Lymphatic Hematologic: absent: Easy Bleeding, Easy Bruising Past Patient History - Infectious Disease Hx of Infectious Diseases: None - Tetanus Immunizations Tetanus Immunization: Unknown - Past Social History Smoking Status: Never Smoked - CARDIAC Hx Cardiac Disorders: No Hx Hypertension: No - PULMONARY Hx Tuberculosis: No - NEUROLOGICAL HX Cerebrovascular Accident: No Hx Seizures: No - HEENT Hx HEENT Problems: No - RENAL Hx Kidney Stones: Yes - ENDOCRINE/METABOLIC Hx Endocrine Disorders: No - HEMATOLOGICAL/ONCOLOGICAL Hx Cancer: No - INTEGUMENTARY Hx Dermatological Problems: No - MUSCULOSKELETAL/RHEUMATOLOGICAL Hx Musculoskeletal Disorders: No - GASTROINTESTINAL Hx Gastrointestinal Disorders: No - GENITOURINARY/GYNECOLOGICAL Hx Sexually Transmitted Disorders: No - PSYCHIATRIC Hx Psychophysiologic Disorder: Yes Hx Depression: Yes Hx Emotional Abuse: No Hx Physical Abuse: No Hx Substance Use: No - SURGICAL HISTORY Hx Section: Yes - ANESTHESIA Hx Anesthesia: Yes Hx Anesthesia Reactions: No Hx Malignant Hyperthermia: No Meds Allergies/Adverse Reactions: Allergies Allergy/AdvReac Type Severity Reaction Status Date / Time No Known Allergies Allergy Verified 08/15/17 19:27 Physical Exam - Constitutional Appears: Non-toxic, No Acute Distress - Head Exam Head Exam: ATRAUMATIC, NORMAL INSPECTION, NORMOCEPHALIC - Eye Exam Eye Exam: EOMI, Normal appearance Pupil Exam: NORMAL ACCOMODATION, PERRL - ENT Exam ENT Exam: Mucous Membranes Moist, Normal Exam - Neck Exam Neck exam: Positive for: Normal Inspection - Respiratory Exam Respiratory Exam: Clear to Auscultation Bilateral, NORMAL BREATHING PATTERN - Cardiovascular Exam Cardiovascular Exam: REGULAR RHYTHM, +S1, +S2 - GI/Abdominal Exam GI & Abdominal Exam: Normal Bowel Sounds, Soft - Extremities Exam Extremities exam: Positive for: normal inspection, pedal pulses present. Negative for: pedal edema, tenderness - Back Exam Back exam: CVA tenderness (L), NORMAL INSPECTION. absent: paraspinal tenderness , rash noted - Neurological Exam Neurological exam: Alert, CN II-XII Intact, Oriented x3 - Skin Additional comments: erythema along ears and cheeks on right side of face Results - Labs Result Diagrams: 08/15/17 13:30 08/15/17 13:30 Assessment & Plan - Assessment and Plan (Free Text) Assessment: 37 year old female presenting with left sided flank and abdominal pain found to have a 2 mm calculus within 1 cm of the left ureterovesical junction. Plan: 2 mm calculus within 1 cm of the left ureterovesical junction -Urology consulted -NPO -NS@100 -Tamsulosin starting tomorrow -Continue with current zofran and morphine -Rocephin given -I&O -Strain for calculi -Urine cultures pending -CBC, CMP, Mg, Phos DVT/GI prophylaxis: SCDs/Protonix Case discussed and reviewed with Dr. Enrique <Lamine Enrique - Last Filed: 08/16/17 16:26> Results - Vital Signs Recent Vital Signs: Last Vital Signs Temp 98.3 F 08/16/17 07:30 Pulse 76 08/16/17 07:30 Resp 18 08/16/17 07:30 BP 107/65 08/16/17 07:30 Pulse Ox 99 08/16/17 07:30 - Labs Result Diagrams: 08/16/17 06:57 08/16/17 06:57 Labs: Laboratory Results - last 24 hr 08/16/17 08/16/17 06:57 06:57 WBC 7.2 D RBC 3.53 Hgb 9.9 L D Hct 30.7 L MCV 87.0 MCH 28.0 MCHC 32.2 RDW 13.6 Plt Count 209 MPV 11.7 H Gran % 59.0 Lymph % (Auto) 28.6 [place] % (Auto) 10.7 H Eos % (Auto) 1.4 L Baso % (Auto) 0.3 Gran # 4.24 Lymph # (Auto) 2.1 [place] # (Auto) 0.8 H Eos # (Auto) 0.1 Baso # (Auto) 0.02 Sodium 141 Potassium 4.1 Chloride 107 Carbon Dioxide 27 Anion Gap 11 BUN 10 Creatinine 0.6 L Est GFR ( Amer) > 60 Est GFR (Non-Af Amer) > 60 Random Glucose 87 Calcium 8.7 Phosphorus 4.3 Magnesium 1.7 Total Bilirubin 0.7 AST 30 ALT 28 Alkaline Phosphatase 39 Total Protein 6.0 Albumin 3.0 Globulin 2.9 Albumin/Globulin Ratio 1.0 L Attending/Attestation - Attestation I have personally seen and examined this patient.: Yes I have fully participated in the care of the patient.: Yes I have reviewed all pertinent clinical information: Yes Notes (Text): 08/16/17 16:23 Attending note; Patient seen and examined with resident in ER. Patient is a 37 year old female with no significant past medical history presenting with 2 days of left abdominal and flank pain. The patient was evaluated in the ER yesterday for abdominal pain. Found to have Small left ureteral stone with mild hydronephrosis. Patient was discharged home with oral Percocet and Flomax. Patient was admitted for recurrent abdominal pain. Nothing by mouth. IV fluids. IV morphine for pain control. Plan for cystoscopy and stent placement by Dr. Warner today.
[2017-08-15] MEDS: Sodium Chloride 0.9% 1,000 ML IV SCH (17:07)
[2017-08-15] MEDS ORDERED: Morphine 2 mg/ml ISec IVP PRN ×2 (17:39→21:14)
[2017-08-15] MEDS ORDERED: Iohexol 240 (50 ml) ONE (20:15)
[2017-08-15] MEDS ORDERED: Propofol 10 mg/ml Inj (20 ML) ONE (20:35)
[2017-08-15] MEDS ORDERED: Lidocaine 2% Inj (20ml) ONE (20:36)
[2017-08-15] MEDS ORDERED: Midazolam 2 MG/2 ML VIAL ONE (20:36)
[2017-08-15] MEDS ORDERED: cefTRIAXone (Rocephin) 1 gm Inj ONE (20:42)
[2017-08-15] MEDS ORDERED: Lactated Ringer's 1,000 ML IV SCH (21:15)
[2017-08-15 21:18] VITALS: O2SAT 99
[2017-08-15] MEDS ORDERED: Pneumococcal 23-Valent Vaccine IM ONE (21:32)
[2017-08-15] MEDS ORDERED: Influenza Vaccine 60 mcg/0.5 mL SYR (4YR UP) IM ONE (21:32)
[2017-08-16] MEDS: Sodium Chloride 0.9% 1,000 ML IV SCH (03:56)
[2017-08-16 07:21] LABS: ALT/SGPT 28 U/L (7-56); AST/SGOT 30 U/L (14-36); BLOOD UREA NITROGEN 10 mg/dL (7-21); CALCIUM 8.7 mg/dL (8.4-10.5); GFR AFRICAN-AMERICAN > 60; GFR NON-AFRICAN AMERICAN > 60
[2017-08-16 07:27] LABS: BASO # 0.02 K/mm3 (0.0-2.0); BASO % 0.3 % (0.0-3.0); EOS # 0.1 (0.0-0.7); EOS % 1.4 % (1.5-5.0); GRAN # 4.24 (1.4-6.5); LYMPH # 2.1 (1.2-3.4); LYMPH % 28.6 % (22.0-35.0); MEAN CORPUSCULAR HGB CONC 32.2 g/dl (31.0-37.0); MEAN PLATELET VOLUME 11.7 fl (7.0-11.0); MONO # 0.8 (0.1-0.6); MONO % 10.7 % (1.0-6.0); RBC 3.53 10^6/uL (3.5-6.1); RED CELL DISTRIBUTION WIDTH 13.6 % (11.5-14.5); WHITE BLOOD COUNT 7.2 10^3/ul (4.5-11.0)
[2017-08-16 07:34] LABS: HEMOGLOBIN 9.9 g/dL (12.0-16.0)
[2017-08-16 08:18] VITALS: BP 107/65; PULSE 76; RESP 18; TEMP 98.3
--- NOTE | 2017-08-16 12:50 | RAD ---
PROCEDURE: Fluoroscopy up to 1 hour HISTORY: STENT INSERTION (LEFT) COMPARISON: TECHNIQUE: Fluoroscopy was provided in the operating room. 24.2 seconds of fluoro time were used. 12 images were submitted FINDINGS: The study shows placement of a left ureteral stent IMPRESSION: As above
--- NOTE | 2017-08-16 15:36 | CP.PCM.DIS ---
<Aleksey Tucker - Last Filed: 08/16/17 15:37> Provider - Provider Date of Admission: 08/15/17 15:12 Attending physician: Lamine Enrique MD Primary care physician: Liseth Norton MD Consults: Urology: Dr. Warner Time Spent in preparation of Discharge (in minutes): 45 Diagnosis - Discharge Diagnosis (1) Encounter for fitting of ureteral stent Status: Acute Hospital Course - Lab Results Lab Results: Most Recent Lab Values WBC 7.2 10^3/ul (4.5-11.0) D 08/16/17 06:57 RBC 3.53 10^6/uL (3.5-6.1) 08/16/17 06:57 Hgb 9.9 g/dL (12.0-16.0) L D 08/16/17 06:57 Hct 30.7 % (36.0-48.0) L 08/16/17 06:57 MCV 87.0 fl (80.0-105.0) 08/16/17 06:57 MCH 28.0 pg (25.0-35.0) 08/16/17 06:57 MCHC 32.2 g/dl (31.0-37.0) 08/16/17 06:57 RDW 13.6 % (11.5-14.5) 08/16/17 06:57 Plt Count 209 10^3/uL (120.0-450.0) 08/16/17 06:57 MPV 11.7 fl (7.0-11.0) H 08/16/17 06:57 Gran % 59.0 % (50.0-68.0) 08/16/17 06:57 Lymph % (Auto) 28.6 % (22.0-35.0) 08/16/17 06:57 Porter % (Auto) 10.7 % (1.0-6.0) H 08/16/17 06:57 Eos % (Auto) 1.4 % (1.5-5.0) L 08/16/17 06:57 Baso % (Auto) 0.3 % (0.0-3.0) 08/16/17 06:57 Gran # 4.24 (1.4-6.5) 08/16/17 06:57 Lymph # (Auto) 2.1 (1.2-3.4) 08/16/17 06:57 Porter # (Auto) 0.8 (0.1-0.6) H 08/16/17 06:57 Eos # (Auto) 0.1 (0.0-0.7) 08/16/17 06:57 Baso # (Auto) 0.02 K/mm3 (0.0-2.0) 08/16/17 06:57 Sodium 141 mmol/L (132-148) 08/16/17 06:57 Potassium 4.1 mmol/L (3.6-5.0) 08/16/17 06:57 Chloride 107 mmol/L (98-107) 08/16/17 06:57 Carbon Dioxide 27 mmol/L (21-33) 08/16/17 06:57 Anion Gap 11 (10-20) 08/16/17 06:57 BUN 10 mg/dL (7-21) 08/16/17 06:57 Creatinine 0.6 mg/dl (0.7-1.2) L 08/16/17 06:57 Est GFR ( Amer) > 60 08/16/17 06:57 Est GFR (Non-Af Amer) > 60 08/16/17 06:57 Random Glucose 87 mg/dL (70-110) 08/16/17 06:57 Calcium 8.7 mg/dL (8.4-10.5) 08/16/17 06:57 Phosphorus 4.3 mg/dL (2.5-4.5) 08/16/17 06:57 Magnesium 1.7 mg/dL (1.7-2.2) 08/16/17 06:57 Total Bilirubin 0.7 mg/dL (0.2-1.3) 08/16/17 06:57 AST 30 U/L (14-36) 08/16/17 06:57 ALT 28 U/L (7-56) 08/16/17 06:57 Alkaline Phosphatase 39 U/L (38-126) 08/16/17 06:57 Total Protein 6.0 g/dL (5.8-8.3) 08/16/17 06:57 Albumin 3.0 g/dL (3.0-4.8) 08/16/17 06:57 Globulin 2.9 gm/dL 08/16/17 06:57 Albumin/Globulin Ratio 1.0 (1.1-1.8) L 08/16/17 06:57 Lipase 37 U/L (23-300) 08/15/17 13:30 - Hospital Course Hospital Course: Patient is a 37 year old female with no significant past medical history presenting with 2 days of left abdominal and flank pain. Patient states the pain started two days ago while cooking. Patient came to [facility] 08/14 for evaluation but decided to go home since pain subsided for the time being. Patient then returned yesterday with the same pain. CT abdomen and pelvis performed yesterday revealed 2 mm calculus within 1 cm of the left ureterovesical junction. Proximal left hydroureter and hydronephrosis identified. The left kidney is moderately edematous with perinephric stranding without urinoma. No upper tract calculi identified. Patient described the pain as sharp, located in the left flank radiating to the left abdomen, rating it a 10/10, exacerbated with laying down and relieved with standing. Patient underwent placement of left renal stent by urology. Patient tolerated procedure well and was discharged with instructions to follow up with her urologist Dr. Warner and to continue taking medications as prescribed. Patient was clinically stable and cleared for discharge. Case discussed and reviewed with Dr. Iva Tukcer PGY1 Discharge Exam - Head Exam Head Exam: ATRAUMATIC, NORMAL INSPECTION, NORMOCEPHALIC - Eye Exam Eye Exam: EOMI, Normal appearance - ENT Exam ENT Exam: Mucous Membranes Moist - Respiratory Exam Respiratory Exam: Clear to PA & Lateral, NORMAL BREATHING PATTERN, UNREMARKABLE - Cardiovascular Exam Cardiovascular Exam: REGULAR RHYTHM, +S1, +S2 - GI/Abdominal Exam GI & Abdominal Exam: Normal Bowel Sounds, Unremarkable - Extremities Exam Extremities exam: normal inspection - Back Exam Back exam: absent: CVA tenderness (L) - Neurological Exam Neurological exam: Alert, CN II-XII Intact, Oriented x3 - Psychiatric Exam Psychiatric exam: Normal Affect, Normal Mood - Skin Skin Exam: Intact, Normal Color, Warm Discharge Plan - Follow Up Plan Condition: GOOD Disposition: HOME/ ROUTINE Instructions: Smoking: Not Just Harmful to Your Lungs and Heart, Kidney Stones (DC), Urinary Tract Infection, Adult (DC), Ureteral Stent (DC) Additional Instructions: 1. Follow up with PMD DR. Norton in 3 days. 2. Follow up with Dr. Brian warner for stent removal. 3. Continue flomax and tylenol prn. Referrals: Liseth Norton MD [Primary Care Provider] - <Lamine Enrique - Last Filed: 08/16/17 16:28> Provider - Provider Date of Admission: 08/15/17 15:12 Attending physician: Lamine Enrique MD Primary care physician: Liseth Norton MD Hospital Course - Lab Results Lab Results: Most Recent Lab Values WBC 7.2 10^3/ul (4.5-11.0) D 08/16/17 06:57 RBC 3.53 10^6/uL (3.5-6.1) 08/16/17 06:57 Hgb 9.9 g/dL (12.0-16.0) L D 08/16/17 06:57 Hct 30.7 % (36.0-48.0) L 08/16/17 06:57 MCV 87.0 fl (80.0-105.0) 08/16/17 06:57 MCH 28.0 pg (25.0-35.0) 08/16/17 06:57 MCHC 32.2 g/dl (31.0-37.0) 08/16/17 06:57 RDW 13.6 % (11.5-14.5) 08/16/17 06:57 Plt Count 209 10^3/uL (120.0-450.0) 08/16/17 06:57 MPV 11.7 fl (7.0-11.0) H 08/16/17 06:57 Gran % 59.0 % (50.0-68.0) 08/16/17 06:57 Lymph % (Auto) 28.6 % (22.0-35.0) 08/16/17 06:57 Porter % (Auto) 10.7 % (1.0-6.0) H 08/16/17 06:57 Eos % (Auto) 1.4 % (1.5-5.0) L 08/16/17 06:57 Baso % (Auto) 0.3 % (0.0-3.0) 08/16/17 06:57 Gran # 4.24 (1.4-6.5) 08/16/17 06:57 Lymph # (Auto) 2.1 (1.2-3.4) 08/16/17 06:57 Porter # (Auto) 0.8 (0.1-0.6) H 08/16/17 06:57 Eos # (Auto) 0.1 (0.0-0.7) 08/16/17 06:57 Baso # (Auto) 0.02 K/mm3 (0.0-2.0) 08/16/17 06:57 Sodium 141 mmol/L (132-148) 08/16/17 06:57 Potassium 4.1 mmol/L (3.6-5.0) 08/16/17 06:57 Chloride 107 mmol/L (98-107) 08/16/17 06:57 Carbon Dioxide 27 mmol/L (21-33) 08/16/17 06:57 Anion Gap 11 (10-20) 08/16/17 06:57 BUN 10 mg/dL (7-21) 08/16/17 06:57 Creatinine 0.6 mg/dl (0.7-1.2) L 08/16/17 06:57 Est GFR ( Amer) > 60 08/16/17 06:57 Est GFR (Non-Af Amer) > 60 08/16/17 06:57 Random Glucose 87 mg/dL (70-110) 08/16/17 06:57 Calcium 8.7 mg/dL (8.4-10.5) 08/16/17 06:57 Phosphorus 4.3 mg/dL (2.5-4.5) 08/16/17 06:57 Magnesium 1.7 mg/dL (1.7-2.2) 08/16/17 06:57 Total Bilirubin 0.7 mg/dL (0.2-1.3) 08/16/17 06:57 AST 30 U/L (14-36) 08/16/17 06:57 ALT 28 U/L (7-56) 08/16/17 06:57 Alkaline Phosphatase 39 U/L (38-126) 08/16/17 06:57 Total Protein 6.0 g/dL (5.8-8.3) 08/16/17 06:57 Albumin 3.0 g/dL (3.0-4.8) 08/16/17 06:57 Globulin 2.9 gm/dL 08/16/17 06:57 Albumin/Globulin Ratio 1.0 (1.1-1.8) L 08/16/17 06:57 Lipase 37 U/L (23-300) 08/15/17 13:30 Attending/Attestation - Attestation I have personally seen and examined this patient.: Yes I have fully participated in the care of the patient.: Yes I have reviewed all pertinent clinical information, including history, physical exam and plan: Yes Notes (Text): 08/16/17 16:26 Attending note; Patient seen and examined with resident. Patient is a 37 year old female with no significant past medical history presenting with 2 days of left abdominal and flank pain. The patient was evaluated in the ER yesterday for abdominal pain. Found to have Small left ureteral stone with mild hydronephrosis. Patient was discharged home with oral Percocet and Flomax. Status post cystoscopy and stent placement by Dr. Warner yesterday. Mild hematuria. Patient is able to urinate. Denies any abdominal pain. Tolerating diet well. Ambulating fine. Patient will be discharged home with close follow-up with Dr. Warner for stent removal. Follow-up with PMD in 1 week. 08/16/17 16:27
[2017-08-17] MEDS ORDERED: Pantoprazole 40 mg EC Tab PO SCH (07:30)
--- NOTE | 2017-08-26 05:04 | OP ---
PROCEDURE DATE: 08/15/2017 PREOPERATIVE DIAGNOSES: Urolithiasis, hematuria, hydronephrosis, and severe renal colic. POSTOPERATIVE DIAGNOSES: Urolithiasis, hematuria, hydronephrosis, and severe renal colic. PROCEDURE: Cystoscopy, left retrograde pyelogram, insertion of left double J-stents. COMPLICATIONS: There were no complications. FINDINGS: 1. Normal bladder mucosa. 2. Hydronephrosis. 3. Stent was deployed without difficulty. BLOOD LOSS: Less than 10 mL. At the termination of the procedure, patient has a double-J stent in. INDICATION FOR PROCEDURE: See history and physical for further details. A very pleasant woman who came dictated consult, history and physical. We discussed options, risks, benefits, alternatives, she is here now for the above. See the addendum at the end. DESCRIPTION OF PROCEDURE: After obtaining informed consent, the patient was placed on the table. Routine monitor was placed. Time-out was called to confirm the patient's positioning. Antibiotic prophylaxis had been used. Cystoscope via urethra, ureteral orifice was identified. Retrograde pyelogram was performed. Wire was passed up to the kidney and a double-J stent has been deployed. Post drain, it . Patient tolerated the procedure without complication. Our plan will now be to bring the patient now to [facility]. We will perform ureteroscopy, a laser lithotripsy or we will perform an ESWL therapy. Further plans will follow depending on what we find clinically. I explained all this in great details to the patient and her cousin that is with her. Aidan Warner MD
--- NOTE | 2017-08-26 05:57 | CON ---
DATE: UROLOGY CONSULTATION REASON FOR CONSULTATION: Severe renal colic. HISTORY OF PRESENT ILLNESS: A very pleasant lady, presenting with severe renal colic and hydronephrosis and stone that is not migrating and progressing distally. She is having ongoing severe pain. See the Urology plans listed below. PAST MEDICAL AND SURGICAL HISTORY: No history of any [place] or CVA. SOCIAL HISTORY: Essentially unremarkable. She comes with her "cousin." REVIEW OF SYSTEMS: As listed above, noncontributory. No weight loss, chest pain or shortness of breath. PHYSICAL EXAMINATION: GENERAL: Well-nourished female. She is in moderate distress. She does look so uncomfortable on the gurney. LUNGS: Clear. HEART: S1, S2. ABDOMEN: Overall relatively soft. No guarding or rebound. No real CVA tenderness. PELVIC: As I mentioned, no pelvic or rectal masses. NEUROLOGIC: The patient is uncomfortable and appears not really resting comfortably. LABORATORY DATA: See chart. CT scan noted to have the stone. DIAGNOSES: 1. Hydronephrosis. 2. Urolithiasis. 3. Hematuria. 4. Severe renal colic that is not resolving or getting better. PLAN: As follows: Again, go to the OR immediately for a cystoscopy retrograde and a stent insertion. I explained to the patient risks, benefits and treatment alternatives including possibility for further ureteroscopy etc. Further plans will follow. But at this point, we are going to do a cystoscopy and a stent insertion. Further plans to follow with the possibility for ureteroscopy and stone basketing and/or laser lithotripsy depending on what we find clinically. Aidan Warner MD
--- NOTE | 2017-08-26 08:11 | PN ---
DATE: 08/15/2017 IMMEDIATE POSTOP NOTE PREOPERATIVE DIAGNOSES: Urolithiasis, hematuria, hydronephrosis. POSTOPERATIVE DIAGNOSES: Urolithiasis, hematuria, hydronephrosis. PROCEDURE: Cystoscopy and stent. Patient is in the recovery room, in stable condition. DIAGNOSES: Urolithiasis, hematuria, hydronephrosis. Patient is feeling better. Vital signs are noted. PLAN: Plan will be for further followup and outpatient treatment for her stone disease. Further plans will follow. Aidan Warner MD
== END 2017-08-16 13:42 | disposition home or self-care (01) ==
LOC: ED 11:29 → ERH 15:12 → 5RSO 19:21
PROVIDERS: ADMIT Internal Medicine; ATTEND Internal Medicine
DX: N13.2 Hydronephrosis with renal and ureteral calculous obstruction (principal)
CPT/HCPCS: 36415; 52332; 76000; 80053; 83690; 83735; 84100; 85025; 96374; 96375; 96376; 99284; C1758; C1769; C2625; G0378; J0696; J1885; J2270; J2405; J2704; J2765; J3010; J7040; Q9966